=== PATIENT | male | born 1960 | race African-American/Black ===

== ENCOUNTER → 2019-12-02 | Outpatient (REF) | payer BC, MEDICARE | LOC: M LAB REF 16:10 | PROVIDERS: ATTEND Specialist | DX: K11.5 Sialolithiasis (principal) ==

== ENCOUNTER → 2020-07-24 | Outpatient (CLI) | payer MEDICARE ==
[2020-07-24 13:21] LABS: BLOOD UREA NITROGEN 14 MG/DL (7-18); CREATININE FOR GFR 1.15 MG/DL (0.70-1.30); GLOMERULAR FILTRATION RATE > 60.0 (>56)
== END ==
LOC: M LAB 12:17
PROVIDERS: ATTEND Specialist
DX: K11.5 Sialolithiasis (principal)

== ENCOUNTER → 2020-07-26 | Outpatient (CLI) | payer OTHER ==
[~2020-07-26] MED LIST: ISOVUE-370 76% 100ML VIAL As Ordered ONE
--- NOTE | 2020-07-27 08:48 | REP ---
INDICATION: SIALOLITHIASIS. COMPARISON: Comparison soft tissue neck CT study [facility] November 02, 2019.. TECHNIQUE: Helical scanning is acquired both prior to and following intravenous contrast administration. 3 mm axial images are generated. Coronal and sagittal MPR images are generated. The contrast enhancement dose is 75 mL of intravenous ProHance. FINDINGS: The prior study showed 2 rights submandibular duct calculi. Neither of these is visible today. Submandibular glands are normal and symmetric. No adenopathy or abnormal fluid collection is seen. There are 2 normal-sized submental lymph nodes. No parotid duct calculus is seen on either side. 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 Thyroid lobes are normal and symmetric. There are shotty lymph nodes in the mediastinum superiorly at the bottom of the imaging field of view which appear to be unchanged although today's study extends into the mediastinum a little lower than the prior. Vats the paranasal sinuses are clear. No bony destructive lesion is seen. There are degenerative spondylosis changes in the cervical spine most pronounced at C4-5 and C5-6. Visualized intracranial, orbital, and deep facial soft tissues are otherwise unremarkable. IMPRESSION: The 2 previously visible right submandibular duct calculi are no longer apparent. No sialo-lithiasis seen today. No evidence of abscess or cyst. There is mild shotty lymphadenopathy in the mediastinum. Mediastinum is not completely included in the field of view. Consider contrast enhanced chest CT study for further evaluation. <Electronically signed by Jaspal Zavaleta > 07/27/20 2299
== END ==
LOC: M RAD 13:32
PROVIDERS: ATTEND Specialist
DX: R59.0 Localized enlarged lymph nodes (principal)

== ENCOUNTER 2024-12-13 08:59 | Day surgery (SDC) | payer BC ==
[~2024-12-13] VITALS: Ht 175.3 cm; Wt 96.6 kg
[~2024-12-13 08:59] MED LIST changes: +AMOX875T2 PO; +ASPI81TA26 PO; +HUMA100I5 SC; +IBUP80TA PO; -ISOVUE-370 76% 100ML VIAL As Ordered ONE; +LISI20TA37 PO; +METF-838 PO; +OCUV1CAP4 PO; +ROSU20TA86 PO; +THERTAB52 PO; +TRES1INJ2 SC
[2024-12-13] MEDS ORDERED: propofoL 200 MG/20 ML VIAL As Ordered ONE (09:31)
[2024-12-13] MEDS ORDERED: LIDOCAINE 2% 100MG/5ML SDV (FOR ANES.) As Ordered ONE (09:31)
[2024-12-13 10:34] VITALS: TEMP 97.7
[2024-12-13 11:00] VITALS: BP 131/75; O2SAT 98
== END 2024-12-13 11:30 | disposition home or self-care (01) ==
LOC: M OPP 08:59
PROVIDERS: ATTEND Internal Medicine Gastroenterology
DX: Z12.11 Encounter for screening for malignant neoplasm of colon (principal); K57.30 Diverticulosis of large intestine without perforation or abscess without bleeding; K64.0 First degree hemorrhoids; Z79.2 Long term (current) use of antibiotics; Z79.82 Long term (current) use of aspirin; Z79.4 Long term (current) use of insulin; Z79.84 Long term (current) use of oral hypoglycemic drugs; Z79.899 Other long term (current) drug therapy